=== PATIENT | female | born 1975 | race Caucasian/White ===

== ENCOUNTER 2023-02-25 09:49 | Outpatient (CLI) | payer BC | END 2023-02-25 09:50 | disposition home or self-care (01) | LOC: CSHMAMMO 09:49 | PROVIDERS: ATTEND Obstetrics & Gynecology | DX: R92.1 Mammographic calcification found on diagnostic imaging of breast (principal) | CPT/HCPCS: G0279 ==

== ENCOUNTER 2023-03-31 06:53 | Day surgery (SDC) | payer BC ==
[2023-03-29 11:21] VITALS: BMI 27.4
[2023-03-31] MEDS ORDERED: PROPOFOL 20 ML ONE (10:43)
[2023-03-31] MEDS ORDERED: Ondansetron PF 4 MG/2 ML Vial ONE (10:43)
[2023-03-31] MEDS ORDERED: Dexamethasone 20 MG/5 ML VIAL ONE (10:43)
[2023-03-31] MEDS ORDERED: fentaNYL 50 mcg/mL 1 mL Vial ONE ×2 (10:43→11:23)
[2023-03-31] MEDS ORDERED: Lidocaine 1% PF 5 ML VIAL ONE (10:43)
[2023-03-31] MEDS ORDERED: Bupivacaine PF 0.5% 30 ML VIAL ONE (10:44)
[2023-03-31] MEDS ORDERED: Isosulfan Blue 50 MG/5 ML VIAL ONE (10:44)
[2023-03-31] MEDS ORDERED: EPINEPHrine 1 MG/ML VIAL ONE ×2 (10:45→10:57)
[2023-03-31] MEDS ORDERED: EPINEPHrine 1 MG/10 ML Abboject SYRINGE ONE (10:45)
[2023-03-31] MEDS ORDERED: CEFAZOLIN 2 GM VIAL ONE (10:57)
[2023-03-31] MEDS ORDERED: Ketorolac Tromethamine 30 MG (1 mL) VIAL ONE (11:47)
[2023-03-31] MEDS ORDERED: HYDROcodone/Acetaminophen 5/325 mg Tablet PO PRN (12:23)
[2023-03-31] MEDS ORDERED: Acetaminophen 325 MG TAB PO PRN (12:23)
== END 2023-03-31 13:15 | disposition home or self-care (01) ==
LOC: CSHSDC 06:53
PROVIDERS: ATTEND Surgery
PROC: 0HBT0ZZ Excision of Right Breast, Open Approach (ICD-10-PCS; principal; 2023-03-31)
DX: N60.21 Fibroadenosis of right breast (principal); F17.200 Nicotine dependence, unspecified, uncomplicated; Z79.899 Other long term (current) drug therapy
CPT/HCPCS: 19281; 76098; 88307; C1713; J0171; J1100; J1885; J2405; J2704; J3010; Q9968; S0020

== ENCOUNTER 2023-09-13 09:22 | Outpatient (CLI) | payer BC | END 2023-09-13 09:23 | disposition home or self-care (01) | LOC: CSHMAMMO 09:22 | PROVIDERS: ATTEND Surgery | DX: N60.21 Fibroadenosis of right breast (principal) | CPT/HCPCS: G0279 ==